=== PATIENT | male | born 1980 | race Caucasian/White ===

== ENCOUNTER 2019-01-16 05:23 | Day surgery (SDC) | payer OTHER ==
[~2019-01-16] VITALS: Ht 180.3 cm; Wt 98.7 kg
[~2019-01-16 05:23] MED LIST: None per pt
[2019-01-16] MEDS ORDERED: LACTATED RINGERS 1,000 ML IV SCH (06:10)
[2019-01-16 06:30] VITALS: BP 125/82
[2019-01-16] MEDS ORDERED: BUPIVACAINE/PF 0.25% ONE (07:06)
[2019-01-16] MEDS ORDERED: LIDOCAINE/PF 0.5% ,50ML ONE (07:06)
[2019-01-16] MEDS ORDERED: EPINEPHRINE 1 MG/ML, 1ML ONE (07:06)
[2019-01-16] MEDS ORDERED: THROMBIN 5,000 UNIT VIAL TP ONE (07:06)
[2019-01-16] MEDS ORDERED: VANCOMYCIN 1,000 MG ONE ×2 (07:06→08:39)
[2019-01-16] MEDS ORDERED: FENTANYL PF 250 MCG/5ML ONE (07:26)
[2019-01-16] MEDS ORDERED: MIDAZOLAM 1 MG/ML, 2ML ONE (07:26)
[2019-01-16] MEDS ORDERED: GABAPENTIN 300 MG CAPSULE PO ONE (07:30)
[2019-01-16] MEDS ORDERED: ONDANSETRON ODT 8 MG PO ONE (07:30)
[2019-01-16] MEDS ORDERED: OxyconTIN ER 20 MG TAB.ER PO ONE (07:30)
[2019-01-16] MEDS ORDERED: ACETAMINOPHEN 500 MG TABLET PO ONE (07:30)
[2019-01-16] MEDS ORDERED: PROPOFOL 10 MG/ML, 20ML ONE (08:39)
[2019-01-16] MEDS ORDERED: NEOSTIGMINE 1 MG/ML, 10ML ONE (08:39)
[2019-01-16] MEDS ORDERED: GLYCOPYRROLATE 0.2MG/1ML, 5ML ONE (08:39)
[2019-01-16] MEDS ORDERED: CEFAZOLIN 1,000 MG ONE (08:39)
[2019-01-16] MEDS ORDERED: LIDOCAINE-MPF 2% ,5ML ONE (08:39)
[2019-01-16] MEDS ORDERED: DEXAMETHASONE 4 MG/ML, 1ML ONE (08:39)
[2019-01-16] MEDS ORDERED: ROCURONIUM 10MG/ML,5ML ONE (08:39)
[2019-01-16] MEDS ORDERED: KETOROLAC 30 MG/1 ML ONE (09:00)
[2019-01-16] MEDS ORDERED: PROMETHAZINE 25 MG/ML, 1ML IV PRN (09:00)
[2019-01-16] MEDS ORDERED: ALBUTEROL/IPRATROPIUM 2.5MG/0.5MG, 3 ML NPPB PRN (09:00)
[2019-01-16] MEDS ORDERED: SCOPOLAMINE PATCH, 1.5MG PATCH.TD72 TD PRN (09:00)
[2019-01-16] MEDS ORDERED: MEPERIDINE/PF 25MG/0.5ML IVPush PRN (09:00)
[2019-01-16] MEDS ORDERED: DIAZEPAM 5 MG/ML, 2ML IVPush PRN (09:00)
[2019-01-16] MEDS ORDERED: BUPIVACAINE/PF-EPI 0.25% 1:200K INFIL ONE (09:00)
[2019-01-16] MEDS ORDERED: hydrALAzine 20 MG/ML, 1ML IV PRN (09:00)
[2019-01-16] MEDS ORDERED: FENTANYL PF 100 MCG/2ML IV PRN (09:00)
[2019-01-16] MEDS ORDERED: HYDROmorphone 2 MG/ML, 1ML IVPush PRN (09:00)
[2019-01-16] MEDS ORDERED: ONDANSETRON 2MG/ML, 2ML IV PRN (09:00)
[2019-01-16] MEDS ORDERED: OXYcodone 5 MG/5 ML ORAL.SOL UDC PO PRN (09:00)
[2019-01-16] MEDS ORDERED: FENTANYL PF 100 MCG/2ML ONE (10:21)
[2019-01-16] MEDS ORDERED: BUPIVACAINE/PF 0.25% INFIL ONE (10:26)
[2019-01-16] MEDS ORDERED: DIAZEPAM 5 MG TABLET PO PRN (13:30)
[2019-01-16] MEDS ORDERED: HYDROcodone/APAP 10/325 MG TABLET PO PRN (13:30)
== END 2019-01-16 15:30 | disposition home or self-care (01) ==
LOC: OUT 05:23
PROVIDERS: ATTEND Orthopaedic Surgery Orthopaedic Surgery of the Spine
DX: M54.16 Radiculopathy, lumbar region (principal); M48.061 Spinal stenosis, lumbar region without neurogenic claudication
CPT/HCPCS: 63030; 72100; J0171; J0690; J1100; J1885; J2001; J2250; J2704; J2710; J3010; J3370; J3490; J7120; Q0162